=== PATIENT | female | born 1955 | race Caucasian/White ===

== ENCOUNTER 2017-01-01 17:34 | Emergency (ER) | payer BC ==
--- NOTE | 2017-01-01 17:47 | Emergency Department Record ---
History of Present Illness - General Source: Patient Mode of Arrival: Ambulatory Limitations: No limitations - History of Present Illness Initial Comments: The patient is here due to a 2 day hx of a dry cough that now is causing her to have severe upper abdominal pain. The pain is sharp and stabbing especially when she coughs. She has had nausea, intermittent vomiting but no diarrhea. The patient did go to an last evening and was started on Omnicef and cough medicine with codeine. Her only abdominal surgery is having her GB removed. MD Complaint: Cough, Other Onset/Timin -: Days(s) Severity: Moderate Severity scale (1-10): 9 Associated Symptoms: Cough <Sergey Edward - Last Filed: 01/01/17 18:51> <OKSANA IYER - Last Filed: 01/01/17 19:22> - General Chief Complaint: Cough Stated Complaint: COUGH Time Seen by Provider: 01/01/17 17:46 - Related Data Home Medications Medication Instructions Recorded Confirmed Last Taken Cefdinir [Omnicef] 300 mg PO DAILY 01/01/17 01/01/17 01/01/17 Metformin HCl [Metformin HCl] 1,000 mg PO DAILY 01/01/17 01/01/17 01/01/17 Omeprazole 20 mg PO DAILY 01/01/17 01/01/17 01/01/17 Promethazine HCl/Codeine 10 ml PO ASDIR PRN 01/01/17 01/01/17 12/31/16 [Phenergan W/Codeine] Previous Rx's Medication Instructions Recorded Doxycycline Monohydrate [Mondoxyne 100 mg PO BID #20 capsule 01/01/17 Nl] Ibuprofen [Motrin 600Mg] 600 mg PO Q8H #20 tablet 01/01/17 Tramadol HCl 50 mg PO Q8H #15 tab 01/01/17 Allergies Allergy/AdvReac Type Severity Reaction Status Date / Time No Known Drug Allergies Allergy Verified 01/01/17 17:46 Travel Screening - Travel/Exposure Within Last 30 Days Have you traveled within the last 30 days?: No - Travel/Exposure Within Last Year Have you traveled outside the [place] in the last year?: No - Additonal Travel Details Have you been exposed to anyone with a communicable illness?: No - Travel Symptoms Symptom Screening: None <Sergey Edward - Last Filed: 01/01/17 18:51> Review of Systems Constitutional: Denies: Chills, Fever Eyes: Denies: Eye discharge ENT: Reports: Congestion Respiratory: Reports: Cough. Denies: Dyspnea Cardiovascular: Denies: Arrhythmia, Chest pain Endocrine: Reports: Fatigue Gastrointestinal: Reports: Abdominal pain, Nausea, Vomiting <Sergey Edward - Last Filed: 01/01/17 18:51> Past Medical History - SOCIAL HISTORY Smoking Status: Former smoker Alcohol Use: Occassional Drug Use: None - RESPIRATORY Hx Respiratory Disorders: No - CARDIOVASCULAR Hx Cardio Disorders: No - NEURO Hx Neuro Disorders: No - GI Hx GI Disorders: No - Hx Genitourinary Disorders: No - ENDOCRINE Hx Endocrine Disorders: Yes Hx Diabetes: Yes Hx Thyroid Disease: No - MUSCULOSKELETAL Hx Musculoskeletal Disorders: Yes - PSYCH Hx Psych Problems: No - HEMATOLOGY/ONCOLOGY Hx Hematology/Oncology Disorders: No <CheyanneSergey - Last Filed: 01/01/17 18:51> Family Medical History Any Significant Family History?: No Hx Cancer: Father, Mother, Brother/Sister Hx Heart Disease: Father, Mother Hx Resp Disorders: Brother/Sister *Resp Comment: brother TB carrier <Sergey Edward - Last Filed: 01/01/17 18:51> Physical Exam - General General Appearance: Alert, Oriented x3, Cooperative, No acute distress - Head Head exam: Atraumatic, Normocephalic, Normal inspection - Eye Eye exam: Normal appearance, PERRL - ENT ENT exam: Normal exam, Mucous membranes moist, Normal external ear exam, Normal orophraynx, TM's normal bilaterally Throat exam: Normal inspection. negative: Tonsillar erythema, Tonsillomegaly - Neck Neck exam: Normal inspection, Full ROM. negative: Lymphadenopathy, Meningismus , Tenderness - Respiratory Respiratory exam: Normal lung sounds bilaterally. negative: Respiratory distress - Cardiovascular Cardiovascular Exam: Regular rate, Normal rhythm, Normal heart sounds - GI/Abdominal GI/Abdominal exam: Soft, Normal bowel sounds, Tenderness (There is significant upper abdominal tenderness greatest in the epigastric area.). negative: Guarding, Rebound, Rigid - Extremities Extremities exam: Normal inspection, Full ROM, Normal capillary refill. negative: Tenderness <CheyanneSergey - Last Filed: 01/01/17 18:51> Course Vital Signs 01/01/17 17:35 Temperature 99.8 F H Pulse Rate 96 H Respiratory 16 Rate Blood Pressure 141/93 Pulse Ox 95 - Reevaluation(s) Reevaluation #1: The patient is doing much better at this time. Her pain has resolved and she now only has it when she twists or flexes her abdominal wall muscles. I did discuss the Abx choice with her and we will stop the Omnicef and start Doxycycline. I also will prescribe Ibuprofen and Tramadol for home for pain. The patient is aware of the liver enzymes being elevated and will F/U with her PCP for recheck. 01/01/17 18:43 <Sergey Edward - Last Filed: 01/01/17 18:51> Vital Signs 01/01/17 17:35 Temperature 99.8 F H Pulse Rate 96 H Respiratory 16 Rate Blood Pressure 141/93 Pulse Ox 95 - Reevaluation(s) Reevaluation #1: The CT scan of the abdomen and pelvis was negative for any acute process. See full report for incidental findings (steatosis, diverticula). The patient was informed and instructed to review the full report with her PCP. 01/01/17 19:21 <OKSANA IYER - Last Filed: 01/01/17 19:22> Medical Decision Making - Data Complexity MDM Data: Labs Ordered and/or Reviewed, X-Ray Ordered and/or Reviewed - Lab Data Result diagrams: 01/01/17 18:04 01/01/17 18:04 - Radiology Data Radiology results: Report reviewed (CXR: Atelctasis or early infiltrate L lingula.) <Sergey Edward - Last Filed: 01/01/17 18:51> - Lab Data Result diagrams: 01/01/17 18:04 01/01/17 18:04 Lab Results 01/01/17 01/01/17 01/01/17 Range/Units 18:04 18:04 18:10 WBC 7.3 (4.2-12.2) K/uL RBC 4.76 (3.80-5.40) M/uL Hgb 14.7 (11.6-16.0) gm/dl Hct 43.8 (35.0-47.0) % MCV 92.0 (81-97) fl MCH 30.9 (27-33) pg MCHC 33.6 (32-36) g/dl RDW 14.0 (11.5-14.5) % Plt Count 228 (130-400) K/uL MPV 9.7 (7.4-10.4) fl Gran % 58.3 (47-80) % Lymphocytes % 29.5 (16-45) % Monocytes % 9.3 H (0-9) % Eosinophils % 2.6 (0-6) % Basophils % 0.3 (0-6) % Sodium 138 (136-145) mmol/L Potassium 3.8 (3.5-5.1) mmol/L Chloride 100 (98-107) mmol/L Carbon Dioxide 24.3 (22-30) mmol/L Anion Gap 13.7 (7-16) BUN 9 (7-17) mg/dL Creatinine 0.7 (0.52-1.04) mg/dL Estimated GFR > 60 ml/min Random Glucose 196 H (70-110) mg/dL Calcium 8.5 (8.5-10.1) mg/dL Total Bilirubin 0.19 L (0.2-1.3) mg/dL Direct Bilirubin 0.0 (0-0.3) mg/dL AST 51 H (14-36) U/L ALT 72 H (9-52) U/L Alkaline Phosphatase 93 (38-126) U/L Total Protein 7.0 (6.3-8.2) gm/dL Albumin 4.3 (3.5-5.0) gm/dL Lipase 113 (23-300) U/L Urine Color Yellow Urine Appearance Clear Urine pH 6.0 (5.0-8.0) Ur Specific [place] <= 1.005 (1.002-1.030) Urine Protein Negative (NEGATIVE) Urine Glucose (UA) 250 mg/dl H (NEGATIVE) Urine Ketones Negative (NEGATIVE) Urine Blood Negative (NEGATIVE) Urine Nitrite Negative (NEGATIVE) Urine Bilirubin Negative (NEGATIVE) Urine Urobilinogen 0.2 (0.20 - 1.00) E.U./dL Ur Leukocyte Esterase Negative (NEGATIVE) <OKSANA IYER - Last Filed: 01/01/17 19:22> Disposition Disposition: Discharge Time of Disposition: 18:50 <Sergey Edward - Last Filed: 01/01/17 18:51> Disposition: Discharge Time of Disposition: 19:22 <OKSANA IYER - Last Filed: 01/01/17 19:22> Clinical Impression: Upper respiratory infection, acute, Abdominal wall pain Disposition: Home, Self-Care Condition: (1) Good Instructions: Upper Respiratory Infection (ED), Muscle Strain (ED) Additional Instructions: Please stop the Cefdinir and start the Doxycycline. Take Ibuprofen or Tramadol for pain. Please see your PCP later this week for recheck. Return to the ER if worse. Prescriptions: Doxycycline Monohydrate [Mondoxyne Nl] 100 mg PO BID #20 capsule Ibuprofen [Motrin 600Mg] 600 mg PO Q8H #20 tablet Tramadol HCl 50 mg PO Q8H #15 tab Forms: Patient Portal Access
[2017-01-01] MEDS ORDERED: 0.9 % SODIUM CHLORIDE 1,000 ML BAG IV ONE (17:51)
[2017-01-01] MEDS ORDERED: ONDANSETRON HCL IV 4 MG/2 ML VIAL IV ONE (17:51)
[2017-01-01] MEDS ORDERED: ACETAMINOPHEN 325 MG TAB PO ONE (17:54)
[2017-01-01] MEDS ORDERED: SUCRALFATE 1 G/10 ML UD PO ONE (17:54)
[2017-01-01 18:10] LABS: BASO % 0.3 % (0-6); EOS % 2.6 % (0-6); GRAN % 58.3 % (47-80); HEMATOCRIT 43.8 % (35.0-47.0); HEMOGLOBIN 14.7 gm/dl (11.6-16.0); LYMPH % 29.5 % (16-45); MEAN CORPUSCULAR HEMOGLOBIN 30.9 pg (27-33); MEAN CORPUSCULAR HGB CONC 33.6 g/dl (32-36); MEAN PLATELET VOLUME 9.7 fl (7.4-10.4); MONO % 9.3 % (0-9); PLATELET COUNT 228 K/uL (130-400); RED BLOOD COUNT 4.76 M/uL (3.80-5.40); WHITE BLOOD COUNT W/O DIFF 7.3 K/uL (4.2-12.2)
[2017-01-01 18:18] LABS: URINE APPEARANCE CLEAR; URINE BILIRUBIN NEGATIVE (NEGATIVE); URINE BLOOD NEGATIVE (NEGATIVE); URINE COLOR YELLOW; URINE KETONE NEGATIVE (NEGATIVE); URINE LEUKOCYTE ESTERASE NEGATIVE (NEGATIVE); URINE NITRITE NEGATIVE (NEGATIVE); URINE PROTEIN NEGATIVE (NEGATIVE); URINE UROBILINOGEN 0.2 E.U./dL (0.20 - 1.00)
[2017-01-01 18:20] LABS: ALBUMIN 4.3 gm/dL (3.5-5.0); ALKALINE PHOSPHATASE 93 U/L (38-126); ALT/SGPT 72 U/L (9-52); ANION GAP 13.7 (7-16); AST/SGOT 51 U/L (14-36); BILIRUBIN,TOTAL 0.19 mg/dL (0.2-1.3); BLOOD UREA NITROGEN 9 mg/dL (7-17); CARBON DIOXIDE 24.3 mmol/L (22-30); CREATININE 0.7 mg/dL (0.52-1.04); EST GLOMERULAR FILTRATION RATE > 60 ml/min; GLUCOSE,RANDOM 196 mg/dL (70-110); LIPASE 113 U/L (23-300)
[2017-01-01] MEDS ORDERED: KETOROLAC 30 MG/ML VIAL IVP ONE (18:24)
[2017-01-01] MEDS ORDERED: DOXYCYCLINE HYCLATE 100 MG CAPSULE PO ONE (18:42)
--- NOTE | 2017-01-03 16:22 | RADIOLOGY REPORT ---
EXAM: CHEST 2 VIEWS HISTORY: COUGH AND SORE THROAT FOR A COUPLE OF DAYS. TECHNIQUE: Upright PA and lateral views of the chest. COMPARISON: None. FINDINGS: The heart is not enlarged and the pulmonary vasculature is nondilated. Subtle linear opacities are scattered within the lingula consistent with atelectasis or scarring. No lung consolidation, costophrenic angle blunting , or pneumothorax is seen. The osseous structures are intact. IMPRESSION: PATCHY PREDOMINANTLY LINEAR OPACITIES WITHIN THE LINGULA CONSISTENT WITH ATELECTASIS OR SCARRING. EARLY INFILTRATE LESS LIKELY. J[facility]BER: [id number] [facility]
--- NOTE | 2017-01-03 16:31 | CT SCAN REPORT ---
EXAM: CT SCAN ABDOMEN/PELVIS WO CONTRAST HISTORY: DIFFUSE ABDOMINAL PAIN EXTENDING INTO BACK. PAIN HAS BEEN PRESENT FOR TWO DAYS. TECHNIQUE: Routine helical CT examination of the abdomen and pelvis was performed without oral or intravenous contrast administration. Lack of oral and IV contrast utilization limits evaluation of the bowel and solid viscera respectively. COMPARISON: None. FINDINGS: The lung bases are grossly clear with the exception of minimal linear scarring versus atelectasis. No pleural or pericardial effusion is seen. The heart is not enlarged. There is diffuse decreased density of the liver relative to the spleen consistent with steatosis. No suspicious focal hepatic lesion is identified. The gallbladder is surgically absent. No gross biliary ductal dilatation is seen. The spleen, pancreas, adrenal glands, and kidneys are unremarkable. No intraabdominal nor retroperitoneal lymphadenopathy identified. There is minor atherosclerosis of the abdominal aorta and iliac arteries without aneurysmal dilatation. No pelvic mass, lymphadenopathy, or free pelvic fluid is seen. No intrinsic urinary bladder abnormality is demonstrated. No gross bowel dilatation nor bowel wall thickening. A surgical clip is noted within the right lower quadrant. The appendix is visualized and normal in appearance. There are occasional diverticula within the left colon without evidence of diverticulitis. No lytic or blastic bone lesion is seen. There are degenerative changes of the visualized spine most pronounced at the lumbosacral junction. IMPRESSION: 1. NO DEFINITE CT EVIDENCE OF AN ACUTE INTRAABDOMINAL NOR INTRAPELVIC PROCESS. 2. HEPATIC STEATOSIS. 3. STATUS POST CHOLECYSTECTOMY. 4. OCCASIONAL DIVERTICULA WITHIN THE LEFT COLON WITHOUT EVIDENCE OF DIVERTICULITIS. NORMAL APPENDIX. 5. MINOR LINEAR SCARRING VERSUS ATELECTASIS IN EACH LUNG BASE. [facility]BER: [id number] [facility]
== END 2017-01-01 19:36 | disposition home or self-care (01) ==
LOC: ER 17:34
DX: R10.13 Epigastric pain (principal); J06.9 Acute upper respiratory infection, unspecified; R11.2 Nausea with vomiting, unspecified; R94.5 Abnormal results of liver function studies; E11.9 Type 2 diabetes mellitus without complications; Z79.84 Long term (current) use of oral hypoglycemic drugs
CPT/HCPCS: 99284 ×2; 96374; 96375; 83690; 85025; 80076; 80048; 81003; 71020; 74176; J1885; J2405; J7030

== ENCOUNTER 2017-12-25 19:10 | Emergency (ER) | payer BC ==
--- NOTE | 2017-12-25 19:48 | Emergency Department Record ---
History of Present Illness - General Chief complaint: Nosebleed/epistaxis Stated complaint: NOSE BLEED Time Seen by Provider: 12/25/17 19:44 Source: Patient Mode of Arrival: Wheelchair Limitations: No limitations - History of Present Illness Initial comments: 62 yo female presents to ED for recurrent nose bleed symptoms from the left nare. Patient reports undergoing recent anterior vaseline packing placed by an urgent care, told that she could remove the packing at home. Upon packing removal, patient reports that her bleeding reoccurred. Patient reports taking only aspirin for anticoagulation, and denies trauma to the nose. Patient reports that her bleeding has now resolved. MD complaint: Epistaxis Onset/Timin -: Hour(s) Location: Nose Severity: Mild Improves with: Pressure Worsens with: None Context-Epistaxis: Aspirin use - Related Data Home Medications Medication Instructions Recorded Confirmed Last Taken Aspirin 81 mg PO DAILY 12/25/17 12/25/17 Unknown Atorvastatin Calcium [Lipitor] 20 mg PO DAILY 12/25/17 12/25/17 Unknown Sitagliptin Phos/Metformin HCl 1 each PO QPM 12/25/17 12/25/17 Unknown [Janumet Xr 50-1,000 mg Tablet] Previous Rx's Medication Instructions Recorded Cephalexin [Keflex] 500 mg PO QID #28 cap 12/25/17 Allergies Allergy/AdvReac Type Severity Reaction Status Date / Time No Known Drug Allergies Allergy Verified 01/01/17 17:46 Travel Screening - Travel/Exposure Within Last 30 Days Have you traveled within the last 30 days?: No - Travel Symptoms Symptom Screening: None Review of Systems Constitutional: Denies: Chills, Fever, Malaise, Night sweats Eyes: Denies: Eye discharge, Eye pain ENT: Reports: Epistaxis. Denies: Congestion, Ear pain Respiratory: Denies: Cough, Dyspnea Cardiovascular: Denies: Chest pain, Dyspnea on exertion Endocrine: Denies: Fatigue, Heat or cold intolerance Gastrointestinal: Denies: Abdominal pain, Nausea, Vomiting Genitourinary: Denies: Incontinence, Retention Musculoskeletal: Denies: Back pain, Gout, Joint swelling Skin: Denies: Bruising, Change in color Neurological: Denies: Abnormal gait, Confusion, Headache Psychiatric: Denies: Anxiety Hematological/Lymphatic: Denies: Anemia, Blood Clots Past Medical History - SOCIAL HISTORY Smoking Status: Former smoker - RESPIRATORY Hx Respiratory Disorders: No - CARDIOVASCULAR Hx Cardio Disorders: Yes Comment:: high cholesterol - NEURO Hx Neuro Disorders: No - GI Hx GI Disorders: Yes Hx Reflux: Yes - Hx Genitourinary Disorders: No - ENDOCRINE Hx Endocrine Disorders: Yes Hx Diabetes: Yes Hx Thyroid Disease: No - MUSCULOSKELETAL Hx Musculoskeletal Disorders: Yes - PSYCH Hx Psych Problems: No - HEMATOLOGY/ONCOLOGY Hx Hematology/Oncology Disorders: No Family Medical History Any Significant Family History?: Yes Hx Cancer: Father, Mother, Brother/Sister Hx Heart Disease: Father, Mother Hx Resp Disorders: Brother/Sister *Resp Comment: brother TB carrier Physical Exam - General General Appearance: Alert, Oriented x3, Cooperative, Mild distress Limitations: No limitations - Head Head exam: Atraumatic, Normocephalic, Normal inspection Head exam detail: negative: Abrasion, Contusion, Brown's sign, General tenderness, Hematoma, Laceration - Eye Eye exam: Normal appearance. negative: Conjunctival injection, Periorbital swelling, Periorbital tenderness, Scleral icterus - ENT Ear exam: negative: Auricular hematoma, Auricular trauma Nasal Exam: Dried blood, Other (Dried blood to the left nare). negative: Active bleeding, Discharge, Foreign body Mouth exam: negative: Laceration, Muffled voice, Tongue elevation, Tongue normal - Neck Neck exam: Normal inspection. negative: Meningismus, Tenderness - Respiratory Respiratory exam: Normal lung sounds bilaterally. negative: Respiratory distress, Rhonchi, Stridor, Wheezes - Cardiovascular Cardiovascular Exam: Regular rate, Normal rhythm, Normal heart sounds - GI/Abdominal GI/Abdominal exam: Soft. negative: Rebound, Rigid, Tenderness - Rectal Rectal exam: Deferred - exam: Deferred - Extremities Extremities exam: Normal inspection. negative: Calf tenderness, Pedal edema, Tenderness - Back Back exam: Denies: CVA tenderness (R), CVA tenderness (L) - Neurological Neurological exam: Alert, Normal gait, Oriented X3 - Psychiatric Psychiatric exam: Anxious - Skin Skin exam: Normal color. negative: Abrasion Type of lesion: negative: abrasion Course Vital Signs 12/25/17 19:29 Temperature 98.1 F Pulse Rate 74 Respiratory 16 Rate Blood Pressure 145/100 Pulse Ox 96 - Reevaluation(s) Reevaluation #1: 12/25/17 20:22 Anterior packing placed using TLE and Rhinor[place], patient tolerated the procedure well without complications. Will observe for recurrent bleeding and initiate Keflex in ED. Reevaluation #2: 12/25/17 20:52 Patient reassessed, no further bleeding noted. Patient appears stable for discharge at this time with instructions to follow-up with Dr. Vivar in the office in 3-5 days as directed. Disposition Disposition: Discharge Clinical Impression: Anterior epistaxis Disposition: Home, Self-Care Condition: (2) Stable Instructions: Nosebleed (ED) Additional Instructions: Return to ED if your symptoms worsen or if you have any concerns. Follow-up with Dr. Vivar in 3-5 days as directed. Leave packing in place until seen by Dr. Vivar. Prescriptions: Cephalexin [Keflex] 500 mg PO QID #28 cap Referrals: DRE VIVAR [DOCTOR OF OSTEOPATH] - Forms: Patient Portal Access Time of Disposition: 20:23 Quality - Quality Measures Quality Measures: N/A - Blood Pressure Screening Does Patient Have Any of the Following: No Blood Pressure Classification: Hypertensive Reading Systolic Measurement: 138 Diastolic Measurement: 98 Screening for High Blood Pressure: < First Hypertensive BP, F/U Documented > [ [id number]] First Hypertensive Follow-up Interventions: Referral to alternative/primary care provider.
[2017-12-25] MEDS ORDERED: CEPHALEXIN 500 MG CAPSULE PO STA (20:22)
== END 2017-12-25 20:56 | disposition home or self-care (01) ==
LOC: ER 19:10
DX: R04.0 Epistaxis (principal); E11.9 Type 2 diabetes mellitus without complications; Z87.891 Personal history of nicotine dependence
CPT/HCPCS: 30901; 99283